=== PATIENT | female | born 1975 | race Caucasian/White ===

== ENCOUNTER 2023-10-04 14:48 | Outpatient (AMB) | payer OTHER, SELFPAY ==
--- NOTE | 2023-10-04 15:18 | A.OFFPC_ITS ---
Vital Signs 10/04/23 15:26 Height 5 ft 3 in Weight 159 lb BMI 28.2 BP 100/60 Blood Pressure Location Rt brachial Position Sitting Respiration 18 Pulse 78 Pulse Source Pulse Oximeter Temp 97.1 F Temp Source Tympanic Pulse Oximetry (%) 98 Oxygen Delivery Method Room Air Intake Visit Reasons: EST CARE Intake Note: establish care Is last menstrual period known: Yes Last menstrual period: 09/25/23 Post menopausal: No Patient : No Medication List - Last Reconciled 10/04/23 by Jose Alfredo Vargas MD No Known Home Meds Tobacco use date assessed: 10/04/23 Dental Screening Dental Screen Date: 10/04/23 Did you have a dental visit in the last 12 months?: No Did you have a dental problem in the last 6 months where you did not have access to dental care?: Yes Was dental information given to patient?: Patient has dentist HPI EST CARE HPI Details New?patient Prior?PCP: No PCP in [place] Last?office?visit/CPE: N/A Acute?issue(s): Concern re Gout Sleep apnea Irregular periods Upper back pain PMHx: upper back pain SurgHx: x 3 FHx: Dad: Dm. Mom: healthy GM: DM. SocHx: Quit cigs in 1999. EtOH: Wine 1-2 occassional. No drugs HPI Comments History of Present Illness Details Documentation assistance for Jose Alfredo Vargas MD, was provided by Jorge Mtz, Certified Anesthesiologist Assistant on 10/04/2023 at 4:17 PM EST. I, Dr. Vargas, have read, observed, and verified documentation. 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 1. Little interest or pleasure in doing things: not at all 2. Feeling down, depressed, or hopeless: several days 3. Trouble falling or staying asleep, or sleeping too much: several days 4. Feeling tired or having little energy: several days 5. Poor appetite or overeating: not at all 6. Feeling bad about yourself - or that you are a failure or have let yourself or your family down: several days 7. Trouble concentrating on things, such as reading the newspaper or watching television: not at all 8. Moving or speaking so slowly that other people could have noticed. Or the opposite - being so fidgety or restless that you have been moving around a lot more than usual: not at all 9. Thoughts that you would be better off or of hurting yourself in some way: not at all Total score: 4 Depression Screening Interpretation: Negative Depression Screening Done: Yes [id number] - PHQ-9 Billing: Yes Source: Developed by Drs. Derek Layton, Rizwana King, Chris Thomason and colleagues, with an educational saida from [employer]. Thrive Questionnaire Date Thrive assessed: 10/04/23 I am a: Patient What is your living situation today?: I have a steady place to live Within the past 12 months, did the food you bought not last and you didn't have the money to get more?: Never true Within the past 12 months, did you worry whether your food would run out before you got money to buy more?: Never true Do you have trouble paying for medicines?: No Do you have trouble getting transportation to medical appointments?: No Do you have trouble paying your heating and electricity bill?: No Do you have trouble taking care of your child, family member or friend?: No Do you have trouble with day-to-day activities such as bathing, preparing meals, shopping, managing finances, etc.?: No Are you currently unemployed and looking for a job?: No Are you interested in more education?: No Please select the resources that you would like help with: None Currently or been in a relationship where the following occur: No concerns reported THRIVE Score: 0 AUDIT C Alcohol Use Questionnaire (AUDIT-C) 1. How often do you have a drink containing alcohol?: 2-3 times a week 2. How many drinks containing alcohol do you have on a typical day when you are drinking?: 1 or 2 3. How often do you have six or more drinks on one occasion?: Never Total Score: 3 Score Reviewed/Action Taken: Yes MEET-7 AMB Questionnaire MEET-7 Date MEET - 7 assessed: 10/04/23 Feeling nervous, anxious, or on edge: 1 = Several days Not being able to stop or control worryin = Not at all Worrying too much about different things: 1 = Several days Trouble relaxin = Several days Being so restless that it is hard to sit still: 0 = Not at all Becoming easily annoyed or irritable: 0 = Not at all Feeling afraid as if something awful might happen: 0 = Not at all Total MEET-7 score (0-4 normal; 5-9 mild; 10-14 moderate; 15-21 severe): 3 Source: Developed by Drs. Derek Layton, Rizwana King, Chris Thomason and colleagues, with an educational saida from [employer]. MEET-7 Assessment Billing MEET-7 Assessment Tool: MEET-7 Assessment 55586 ACT Questionnaire In the past 4 weeks, how much of the time did your asthma keep you from getting as much done at work, school or at home?: None of the time During the past 4 weeks, how often have you had shortness of breath?: Not at all During the past 4 weeks, how often did your asthma symptoms wake you up at night or earlier than usual in the morning?: Not at all During the past 4 weeks, how often have you had to use your rescue inhaler or nebulizer medication?: 1-2 times a week How would you rate your asthma control during the past 4 weeks?: Completely controlled ACT Interpretation: Positive Score: 22 Review of Systems Const Denies chills, Denies fatigue, Denies fever(s), Denies headache(s) and Denies weakness ENT Denies dizziness and Denies headache(s) Card Denies dyspnea Resp Denies cough, Denies dyspnea, Denies wheezing and Denies other (shortness of breath) Musc Reports back pain, Denies numbness and Denies tingling Neuro Denies dizziness, Denies headache(s), Denies numbness, Denies tingling and Denies weakness Psych Denies anxiety and Denies depression Endo Denies fatigue Aller/Immun Denies wheezing Physical exam (Primary Care) Vital Signs: Last Vital Signs Temp 97.1 F 08/19/24 15:26 Pulse 78 10/04/23 15:26 Resp 18 10/04/23 15:26 BP 100/60 10/04/23 15:26 Pulse Ox 98 10/04/23 15:26 Oxygen Delivery Method Room Air 10/04/23 15:26 BMI result Body Mass Index 28.2 Tobacco/Smoking Status: Tobacco use Status Tobacco use date assessed 10/04/23 10/04/23 15:28 Patient Tobacco Use Status Never used Tobacco 10/04/23 15:28 e-Cigarette/Vaping Use Never Used 10/04/23 15:28 PHQ-9: PHQ-9 Score PHQ-9: Total score 4 10/04/23 15:28 Depression Screening Interpretation: Negative Thrive Assessment: Date of Thrive Assessment Date Thrive assessed 10/04/23 10/04/23 15:28 Currently or been in a relationship where the following occur: No concerns reported Const General: well developed; No acute distress Nutritional Appearance: well nourished Orientation/consciousness: patient oriented x3 HENMT Head: Yes normocephalic and Yes atraumatic Eyes General: appearance normal, both eyes and all related structures Pupils: Equal, round and reactive pupils present EOM: EOMs intact bilaterally Resp Effort & Inspection: normal respiratory effort Neuro General: patient oriented x3 and gait normal Cranial nerves: Yes Equal, round and reactive pupils present Psych Affect: normal affect Assessment and Plan Assessment & Plan (1) Gout: Code(s): M10.9 - Gout, unspecified Plan: History?of?gout Check?uric?acid?level (2) Ganglion cyst: Code(s): M67.40 - Ganglion, unspecified site Plan: Ganglion?cyst?at?anterior?right?wrist Reassured?patient She?will?let?me?know?if?this?is?getting?irritated?or?larger (3) Sleep apnea: Code(s): G47.30 - Sleep apnea, unspecified Plan: Witnessed?apneic?events Referred?to?Sleep?Medicine (4) Irregular periods: Code(s): N92.6 - Irregular menstruation, unspecified Plan: Likely?perimenopause Check?labs Patient?is?being?referred?to?asbestos surveyor?for?screening?for?cervical?cancer?and? can?also?discuss?irregular?menstruation (5) Upper back pain: Code(s): M54.9 - Dorsalgia, unspecified Plan: Has?benefited?from?physical?therapy?in?the?past?and?I?referred?her?back?to?physi milka?therapy Longstanding?symptoms?however-Check?x-ray Can?use?OTC?ibuprofen,?ice?and?heat (6) Screening for cervical cancer: Code(s): Z12.4 - Encounter for screening for malignant neoplasm of cervix Plan: Referred?to?OBGYN (7) Laboratory exam ordered as part of routine general medical examination: Code(s): Z00.00 - Encounter for general adult medical examination without abnormal findings Plan: Check?labs Orders: Orders Comprehensive [place]. Panel Fast Today Z00.00 - Encounter for general adult medical examination without abnormal findings Lipid Panel Today Z00.00 - Encounter for general adult medical examination without abnormal findings TSH reflex Free T4 Today Z00.00 - Encounter for general adult medical examin ation without abnormal findings UA and rflx microscopic Today Z00.00 - Encounter for general adult medical examination without abnormal findings Uric Acid Today M10.9 - Gout, unspecified Follicle Stimulating Hormone Today N92.6 - Irregular menstruation, unspecified Lutenizing Hormone Today N92.6 - Irregular menstruation, unspecified Microalbumin, Random (w Creat) Today I10 - Essential (primary) hypertension PT Evaluation and Treatment Today M54.9 - Dorsalgia, unspecified XR thoracic spine 2V Today M54.9 - Dorsalgia, unspecified Referrals PLACER MINER Referral N92.6 - Irregular menstruation, unspecified, Z12.4 - Encounter for screening for malignant neoplasm of cervix Sleep Medicine Referral G47.30 - Sleep apnea, unspecified Coding Level of Care Code New Pt Level 4 (16926) Diagnoses Gout M10.9 Ganglion cyst M67.40 Sleep apnea G47.30 Irregular periods N92.6 Upper back pain M54.9 Screening for cervical cancer Z12.4 Laboratory exam ordered as part of routine general medical examination Z00.00 Additional Codes MEET-7 Assessment Billing - MEET-7 Assessment Tool: MEET-7 Assessment [id number] ([id number])
[2023-10-04 15:26] VITALS: BP 100/60; PULSE 78; RESP 18; TEMP 36.2; O2SAT 98; BMI 28.2
== END 2023-10-04 16:17 | disposition home or self-care (01) ==
PROVIDERS: Visit Provider Family Medicine
DX: M10.9 Gout, unspecified (principal); M67.40 Ganglion, unspecified site; G47.30 Sleep apnea, unspecified; N92.6 Irregular menstruation, unspecified; M54.9 Dorsalgia, unspecified
CPT/HCPCS: 99204

== ENCOUNTER 2023-10-06 07:45 | Outpatient (REF) | payer OTHER, SELFPAY ==
[2023-10-06 10:00] LABS: Appearance Urine Clear; Color Urine Yellow; Glucose Urine UA Negative (Negative); Leukocyte Esterase Urine Negative (Negative); Nitrite Urine Negative (Negative); PH 5.5 (5.0-9.0); Specific Gravity - Urine <= 1.005 (1.005-1.025); Urine Blood Negative (Negative); Urine Ketones Negative (Negative); Urine Protein Negative (Neg-Trace)
[2023-10-06 10:41] LABS: Alanine Aminotransferase 14 U/L (0-31); Albumin Level 4.3 g/dL (3.5-5.0); Alkaline Phosphatase 63 U/L (39-117); Anion Gap 12 (12-20); Aspartate Amino Transferase 17 U/L (5-31); Bilirubin Total 0.6 mg/dL (0.0-1.0); Blood Urea Nitrogen 13 mg/dL (9-16); Calcium 9.2 mg/dL (8.4-10.2); Carbon Dioxide 24 mmol/L (22-29); Chloride 105 mmol/L (96-108); Cholesterol 185 mg/dL (<200); Estimated Glomerular Filt Rate > 60; Glucose Fasting 105 mg/dL (60-99); HDL Cholesterol 54 mg/dL (>40); LDL Cholesterol Calculated 117 mg/dL (<100); Potassium 3.9 mmol/L (3.3-5.1); Sodium 137 mmol/L (135-145); Total Protein 7.2 g/dL (6.5-8.0); Triglycerides 74 mg/dL (<150); Uric Acid 5.9 mg/dL (2.4-5.7)
[2023-10-06 10:55] LABS: TSH reflex Free T4 1.23 uIU/mL (0.32-4.0)
[2023-10-06 11:53] LABS: Creatinine Urine 39.97 mg/dL; Microalbumin Urine < 5.0 mg/L
[2023-10-07 07:28] LABS: Follicle Stimulating Hormone 48.6 mIU/mL; Lutenizing Hormone 23.1 mIU/mL
== END 2023-10-06 07:46 | disposition home or self-care (01) ==
LOC: HO.WFDLDS 07:45
PROVIDERS: Visit Provider Family Medicine
DX: Z00.00 Encounter for general adult medical examination without abnormal findings (principal); I10 Essential (primary) hypertension; M10.9 Gout, unspecified; N92.6 Irregular menstruation, unspecified
CPT/HCPCS: 36415; 80053; 80061; 81003; 82043; 82570; 83001; 83002; 84443; 84550

== ENCOUNTER 2023-12-07 15:02 | Outpatient (REF) | payer OTHER, SELFPAY ==
[2023-12-08 13:41] LABS: CT PCR NOT DETECTED (Not Detect.); NG PCR NOT DETECTED (Not Detect.)
[2023-12-08 13:55] LABS: Bacterial Vaginosis PCR POSITIVE (Negative); Candida Group PCR NOT DETECTED (Not Detect); Candida glab krusei PCR NOT DETECTED (Not Detect); Trichomonas vaginalis PCR NOT DETECTED (Not Detect)
[2023-12-09 17:53] LABS: HPV mRNA E6/E7 Not Detected (Not Detected)
== END 2023-12-07 15:03 | disposition home or self-care (01) ==
LOC: HO.LAB 15:02
PROVIDERS: PCP Family Medicine; Visit Provider Advanced Practice Midwife
DX: Z01.419 Encounter for gynecological examination (general) (routine) without abnormal findings (principal); N89.8 Other specified noninflammatory disorders of vagina; Z11.51 Encounter for screening for human papillomavirus (HPV); Z11.8 Encounter for screening for other infectious and parasitic diseases; Z11.3 Encounter for screening for infections with a predominantly sexual mode of transmission
CPT/HCPCS: 0352U; 36415; 87491; 87591; 87624; 88175

== ENCOUNTER 2023-12-07 15:02 | Outpatient (AMB) | payer OTHER, SELFPAY ==
[2023-12-07 15:09] VITALS: BP 105/60; BMI 28.5
--- NOTE | 2023-12-07 15:09 | MHC.OFFVIS ---
Vital Signs 12/07/23 15:09 Height 5 ft 3 in Weight 161 lb BMI 28.5 BP 105/60 Intake Visit Reasons: New PT/ Annual 21 Dealer Services: 21 Dealer Present Information Interpreted: clinical only Gasoline Engine Inspector: Gasoline Engine Inspector Present Allergies No Known Allergies Allergy (Verified 12/07/23 15:18) Medication List - Last Reconciled 12/07/23 by Kimber Adams CNM No Known Home Meds Is last menstrual period known: Yes Last menstrual period: 11/09/23 HPI HPI New PT/ Annual: Details: Patient is here is a new patient for new study director exam she immigrated [facility] 3 years ago she has a primary care provider on a [place] she has not appointment up nurse practitioners as well she has some upper that pain that gets worse when she is stressed she tries eat well and works out she has also been wondering about different kinds of dermatitis on her skin various areas that have recurred over the years. She says uses every kind of moisturizer that there is currently she is using Cetaphil or Eucerin.. She is sexually active with her partner of many years and has no concerns about STIs but decided to get tested while she is here she does not remember having any abnormal Pap smear she had a history of ovarian cyst but when they went in and did a laparoscopy went to remove the cyst it popped and there was nothing that needed to be done at all they did notice at the time that she had varicose veins in side and they told her about that told her it was not anything that was worrisome or that was problematic. 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 Cognitive needs: No Hearing needs: No Vision needs: Yes Female Reproductive History Menstrual Age of Menarche: 11 Date of last menstrual period: 11/09/23 control method: permanent sterilization Total pregnancies: 3 Full term: 3 Date of last pap smear: 03/16/20 (negative) Physical Exam Vital Signs: Last Vital Signs BP 105/60 12/07/23 15:09 BMI result Body Mass Index 28.5 Const General: healthy appearing, comfortable, no acute distress, well developed and alert Nutritional Appearance: average body habitus Orientation/consciousness: patient oriented x3 Limitations: no limitations HEENT Head: Yes normocephalic Neck Neck: Yes normal visual inspection Chest Chest palpation & inspection: normal inspection of the chest Breast/axilla inspection: normal inspection of the breasts and normal inspection of the axillae Breast/axilla palpation: normal palpation of the breasts and normal palpation of the axillae Resp Effort & Inspection: normal respiratory effort GI Inspection: Yes normal to inspection, No Abdominal wall edema and No distended Palpation (GI): Soft to palpation and nontender Other: Cervix multiparous pink moist smooth normal discharge uterus midposition to anteverted mobile nontender adnexa nontender nonenlarged good tone with Kegel. General: Yes bladder normal to palpation External Female Exam: normal external appearance and normal appearance of the urethra Speculum Exam - Vagina: normal appearance of the vagina, normal palpation and normal vaginal discharge Speculum Exam - Cervix: normal appearance of the cervix, normal palpation and nontender Bimanual exam- vagina & uterus: normal bimanual exam, normal palpation, uterine size normal, bladder normal to palpation, consistency normal, normal palpation, uterine mobility normal, uterine shape normal, No Cervical tenderness present, non-tender and no cervical motion tenderness Bimanual Exam- Adnexa, other: normal adnexae, no masses, normal and No adnexal tenderness Neuro General: patient oriented x3 Assessment & Plan Assessment & Plan (1) Screening for cervical cancer: Code(s): Z12.4 - Encounter for screening for malignant neoplasm of cervix Category: Medical (2) History of tubal ligation: Code(s): Z98.51 - Tubal ligation status Category: Surgical (3) H/O laparoscopy: Code(s): Z98.890 - Other specified postprocedural states Category: Surgical (4) Encounter for screening examination for sexually transmitted disease: Code(s): Z11.3 - Encounter for screening for infections with a predominantly sexual mode of transmission Category: Medical (5) Breast cancer screening: Code(s): Z12.39 - Encounter for other screening for malignant neoplasm of breast Category: Medical (6) Well woman exam with routine gynecological exam: Code(s): Z01.419 - Encounter for gynecological examination (general) (routine) without abnormal findings Category: Medical Plan -----Discussed in this visit the following: healthy balanced diet, regular and consistent exercise, getting recommended health screens, doing the best she can for her particular health concerns, kegel exercises, pap smear screening and followup recommendations, mammography screening and SBE, normal changes in cycles in her life stage--- . Discussed changes in a health of body's as and what can be related menopause what aging discussed also the possibility that some of might be related to as has come on living space B's more than areas recently as where she lives most of her life was a very different humidity level suggested and highly recommended increasing her water intake even more, and diligently using moisture lotion immediately after showering for her skin has a chance to dry out and exploring use of humidifiers. In addition to that though if she feels that there any joint issues or skin issues that are not alleviated with these concerns to explore this with her primary care provider as there some times are conditions that can manifest in these systems though they would not necessarily be have anything to do with menopause. Discussed that vaginal dryness and decreased comfort sex can be related to menopause as well as other symptoms. I am ordering blood tests for STIs she decided to get done today and she is on portal in check the results herself. I am also ordering mammogram she has been afraid of getting 1 done because she heard it hurts, so I recommend she very much try to schedule it for after her period, Before her breast become more tender. Orders: Orders Hepatitis B Surface Antigen Today Z11.3 - Encounter for screening for infections with a predominantly sexual mode of transmission, Z12.39 - Encounter for other screening for malignant neoplasm of breast, Z12.4 - Encounter for screening for malignant neoplasm of cervix, Z98.51 - Tubal ligation status, Z98.890 - Other specified postprocedural states Hepatitis C Antibody Today Z11.3 - Encounter for screening for infections with a predominantly sexual mode of transmission, Z12.39 - Encounter for other screening for malignant neoplasm of breast, Z12.4 - Encounter for screening for malignant neoplasm of cervix, Z98.51 - Tubal ligation status, Z98.890 - Other specified postprocedural states CT NG by PCR Today N89.8 - Other specified noninflammatory disorders of vagina HIV Ab/Ag Today Z11.3 - Encounter for screening for infections with a predominantly sexual mode of transmission, Z12.39 - Encounter for other screening for malignant neoplasm of breast, Z12.4 - Encounter for screening for malignant neoplasm of cervix, Z98.51 - Tubal ligation status, Z98.890 - Other specified postprocedural states Syphilis Screen Today Z11.3 - Encounter for screening for infections with a predominantly sexual mode of transmission, Z12.39 - Encounter for other screening for malignant neoplasm of breast, Z12.4 - Encounter for screening for malignant neoplasm of cervix, Z98.51 - Tubal ligation status, Z98.890 - Other specified postprocedural states MM tomosynthesis screening BI Today Z01.419 - Encounter for gynecological examination (general) (routine) without abnormal findings, Z12.31 - Encounter for screening mammogram for malignant neoplasm of breast, Z12.39 - Encounter for other screening for malignant neoplasm of breast Bacterial Vaginosis Panel Today N89.8 - Other specified noninflammatory disorders of vagina PAP + HPV E6/E7 rfx 18/45 Today Z01.419 - Encounter for gynecological examination (general) (routine) without abnormal findings Coding Level of Care Code New Pt Prev Care 40-64y([id number]) Diagnoses Screening for cervical cancer Z12.4 History of tubal ligation Z98.51 H/O laparoscopy Z98.890 Encounter for screening examination for sexually transmitted disease Z11.3 Breast cancer screening Z12.39 Well woman exam with routine gynecological exam Z01.419
== END 2023-12-07 16:34 | disposition home or self-care (01) ==
LOC: HO.HWSM 15:02
PROVIDERS: PCP Family Medicine; Visit Provider Advanced Practice Midwife
DX: Z01.419 Encounter for gynecological examination (general) (routine) without abnormal findings (principal); Z98.51 Tubal ligation status
CPT/HCPCS: 99386

== ENCOUNTER 2023-12-18 09:05 | Outpatient (REF) | payer OTHER, SELFPAY ==
--- NOTE | ~2023-12-18 | MM_ITS ---
EXAMINATION: MM SCREENING DIGITAL BREAST TOMOSYNTHESIS, BILATERAL CLINICAL INFORMATION: Screening. Asymptomatic. COMPARISON: Mammography: Baseline. TECHNIQUE: Digital breast mammography with tomosynthesis is performed in both the craniocaudal and mediolateral oblique views along with computer-aided detection (CAD). FINDINGS: The breasts are heterogeneously dense, which may obscure small masses (ACR BI-RADS breast composition Category c). There are no significant masses, abnormal calcifications, or other abnormalities. MM/MM tomosynthesis screening BI IMPRESSION: No mammographic evidence of malignancy. ASSESSMENT: BI-RADS BI-RADS 1 - Negative RECOMMENDATION: Routine annual mammography screening. 1 year F/U This examination should not preclude the clinical evaluation of a suspicious palpable abnormality. This patient's information was entered into a reminder system with a target due date for their next mammogram. Electronically signed by: Sri Hicks DO 12/28/2023 09:23 AM MARSHA
[2023-12-18 10:53] LABS: Syphilis Screen Nonreactive (Nonreactive)
[2023-12-18 10:54] LABS: HBsAGNum1 0.31 S/CO (0.00-0.99); HIV AB/AG Nonreactive (Nonreactive); HIV Num 1 0.06 S/CO (0.00-0.99); Hepatitis B Surface Antigen Negative (Negative); ~HepC Num1 0.05 S/CO (0.00-0.79); ~Hepatitis C Antibody Nonreactive (Nonreactive)
== END 2023-12-18 09:06 | disposition home or self-care (01) ==
LOC: HO.MAMMO 09:05
PROVIDERS: PCP Family Medicine; Visit Provider Advanced Practice Midwife
DX: Z12.31 Encounter for screening mammogram for malignant neoplasm of breast (principal); Z12.39 Encounter for other screening for malignant neoplasm of breast; Z01.419 Encounter for gynecological examination (general) (routine) without abnormal findings; Z11.3 Encounter for screening for infections with a predominantly sexual mode of transmission; Z12.4 Encounter for screening for malignant neoplasm of cervix; Z98.890 Other specified postprocedural states; Z98.51 Tubal ligation status
CPT/HCPCS: 36415; 77063; 77067; 86780; 86803; 87340; 87389

== ENCOUNTER → 2023-12-18 09:15 | Outpatient (BNV) | payer OTHER, SELFPAY | PROVIDERS: PCP Family Medicine; Visit Provider Internal Medicine | DX: Z12.31 Encounter for screening mammogram for malignant neoplasm of breast (principal) | CPT/HCPCS: 77063; 77067 ==

== ENCOUNTER 2024-01-17 15:15 | Outpatient (AMB) | payer OTHER, SELFPAY ==
--- NOTE | 2024-01-17 15:17 | A.OFFPC_ITS ---
Vital Signs 01/17/24 15:22 Height 5 ft 3 in Weight 163 lb BMI 28.9 BP 118/68 Blood Pressure Location Rt brachial Position Sitting Respiration 13 Pulse 86 Pulse Source Pulse Oximeter Pulse Oximetry (%) 98 Oxygen Delivery Method Room Air Intake Visit Reasons: CPE with f/u labs and health maint. 30 mins Intake Note: physical and follow up on labs Call Center Receptionist Required: No Allergies No Known Allergies Allergy (Verified 01/17/24 15:31) Medication List - Last Reconciled 01/17/24 by [facility] No Known Home Meds Tobacco use date assessed: 10/04/23 Dental Screening Dental Screen Date: 10/04/23 HPI HPI Comments History of Present Illness Details 48 y/o F with gout, DEIDRA on CPAP, perime nopause, chronic low back pain, IFG, rosacea SurgHx: x 3, tubal ligation, laparoscopy FHx: Dad: Dm. Mom: healthy GM: DM. SocHx: moved from [facility], Quit cigs in 1999. EtOH: Wine 1-2 occasional. No drugs [facility] [employer] Health Maintenance: ? Colon declined, willing to do cologaurd, ordered today ? Mammo 12/2023 ? DEXA n/a ? PAP 11/2023 ? Tdap declined Flu declined Here today for CPE Reviewed w/ her: Labs 09/2023 fasting glucose 105, Uric acid ^ 5.9, LDL 117 otherwise normal Trying to eat healthy Pain in hands and joints in general cont to suffer perimenopause sx Has dry eyes, using OTC drops with + effect. Eye exam in the last 1 year Rash to body and rash to face; itchy thumbs bilat cortisone helps; saw derm a long time ago. Plan: Derm referral cologuard Menoapuse supplement, buy online Selsun blue shampoo and moisturizer for rash If cont to have aches/pains, please let us know. Can consider addl labs and/or referral to [facility]. RTO 1 year, CPE, sooner PRN [facility] Surgical History (Updated 12/07/23 @ 16:26 by Kimber Adams CNM) H/O laparoscopy S/P History of tubal ligation Social History (Reviewed 12/07/23 @ 15:[address] 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 1. Little interest or pleasure in doing things: not at all 2. Feeling down, depressed, or hopeless: not at all 3. Trouble falling or staying asleep, or sleeping too much: not at all 4. Feeling tired or having little energy: not at all 5. Poor appetite or overeating: not at all 6. Feeling bad about yourself - or that you are a failure or have let yourself or your family down: not at all 7. Trouble concentrating on things, such as reading the newspaper or watching television: not at all 8. Moving or speaking so slowly that other people could have noticed. Or the opposite - being so fidgety or restless that you have been moving around a lot more than usual: not at all 9. Thoughts that you would be better off or of hurting yourself in some way: not at all Total score: 0 Depression Screening Interpretation: Negative Depression Screening Done: Yes 27398 - PHQ-9 Billing: Yes Source: Developed by Drs. Derek Layton, Rizwana King, Chris Thomason and colleagues, with an educational saida from [employer]. Thrive Questionnaire Date Thrive assessed: 01/17/24 I am a: Patient What is your living situation today?: I have a steady place to live Within the past 12 months, did the food you bought not last and you didn't have the money to get more?: I choose not to answer this question Within the past 12 months, did you worry whether your food would run out before you got money to buy more?: Never true Do you have trouble paying for medicines?: No Do you have trouble getting transportation to medical appointments?: No Do you have trouble paying your heating and electricity bill?: No Do you have trouble taking care of your child, family member or friend?: No Do you have trouble with day-to-day activities such as bathing, preparing meals, shopping, managing finances, etc.?: No Are you currently unemployed and looking for a job?: No Are you interested in more education?: No Please select the resources that you would like help with: None Currently or been in a relationship where the following occur: I choose not to answer THRIVE Score: 0 AUDIT C Alcohol Use Questionnaire (AUDIT-C) 1. How often do you have a drink containing alcohol?: 2-4 times a month 2. How many drinks containing alcohol do you have on a typical day when you are drinking?: 1 or 2 3. How often do you have six or more drinks on one occasion?: Never Total Score: 2 Score Reviewed/Action Taken: Yes MEET-7 AMB Questionnaire MEET-7 Date MEET - 7 assessed: 01/17/24 Feeling nervous, anxious, or on edge: 1 = Several days Not being able to stop or control worryin = Several days Worrying too much about different things: 1 = Several days Trouble relaxin = Not at all Being so restless that it is hard to sit still: 1 = Several days Becoming easily annoyed or irritable: 0 = Not at all Feeling afraid as if something awful might happen: 0 = Not at all Total MEET-7 score (0-4 normal; 5-9 mild; 10-14 moderate; 15-21 severe): 4 Source: Developed by Drs. Derek Layton, Rizwana King, Chris Thomason and colleagues, with an educational saida from [employer]. MEET-7 Assessment Billing MEET-7 Assessment Tool: MEET-7 Assessment 01766 Physical exam (Primary Care) Tobacco/Smoking Status: Tobacco use Status Tobacco use date assessed 10/04/23 01/17/24 15:19 Patient Tobacco Use Status Never used Tobacco 01/17/24 15:19 e-Cigarette/Vaping Use Never Used 01/17/24 15:19 PHQ-9: PHQ-9 Score PHQ-9: Total score 0 01/17/24 15:19 Depression Screening Interpretation: Negative Thrive Assessment: Date of Thrive Assessment Date Thrive assessed 01/10/24 01/17/24 15:19 Currently or been in a relationship where the following occur: I choose not to answer Const Other: General: Well developed, well nourished, in no acute distress. Appears stated age. Head: Normocephalic, atraumatic. Eyes: Pupils are equal, round and reactive to light and accommodation. Conjunctivae are clear. Vision grossly normal. Ears: TMs clear AU, EACS WNL Nose: Patent, without discharge. Mouth: There are no ulcers or lesions noted. No inflammation, no post nasal drip, no plaques nor exudates. Neck: Supple, no adenopathy or thyromegaly. Lungs: Clear to auscultation bilaterally. No rales, rhonchi or wheeze noted. Good air flow in all ross. Heart: Regular rate and rhythm. No murmurs, click, rubs or gallops are noted. Abdomen: Bowel sounds present in all quadrants. The abdomen is soft, nontender, with no masses or organomegaly noted. No hernias are noted. Musculoskeletal: Joints are nontender, without swelling, redness, or effusions. Range of motion is observed to be normal. Pulses: Peripheral pulses are equal and palpable bilaterally. Extremities: No clubbing, cyanosis nor edema is noted. Neurologic: Gait and station normal. Cranial Nerves 2-12 intact. Motor strength grossly symmetrical and intact. No sensory loss. Balance normal. Skin: No ulcers, or lesions noted. Turgor is good. Skin color is good. Hair and nails are without abnormalities. Rosacea to face, keratosis pilaris to bilat upper and lower extremities, nape of neck, left thumb is a pinpoint red area on the palmar surface Psych: Normal eye contact, affect and mood appropriate, and normal interactions. Patient is alert and appropriate to context. Results AMB Hemoglobin A1c AMB Hemoglobin A1c 5.5 % Last Edit by Yovana Jamison MA on 01/17/24 15:47 Coding Level of Care Code Est Pt Prev Care 40-64y(87635) Diagnoses Encounter for general adult medical examination without abnormal findings Z00.00 Perimenopause N95.1 DEIDRA on CPAP G47.33 Rash of face R21 Keratosis pilaris L85.8 Pain in other joint M25.59 Joint pain location: other joint Additional Codes MEET-7 Assessment Billing - MEET-7 Assessment Tool: MEET-7 Assessment 84537 ([id number]) PHQ-9 - 35102 - PHQ-9 Billing: Yes ([id number]) Assessment & Plan Assessment & Plan (1) Encounter for general adult medical examination without abnormal findings: Code(s): Z00.00 - Encounter for general adult medical examination without abnormal findings (2) Perimenopause: Code(s): N95.1 - Menopausal and female climacteric states Category: Medical (3) DEIDRA on CPAP: Code(s): G47.33 - Obstructive sleep apnea (adult) (pediatric) Category: Medical (4) Rash of face: Code(s): R21 - Rash and other nonspecific skin eruption Category: Medical (5) Keratosis pilaris: Code(s): L85.8 - Other specified epidermal thickening Category: Medical (6) Arthralgia: Code(s): M25.50 - Pain in unspecified joint Category: Medical Qualifiers: Joint pain location: other joint Qualified Code(s): M25.59 - Pain in other specified joint Plan . Orders: Orders AMB Hemoglobin A1c Today Z13.9 - Encounter for screening, unspecified Referrals Cologuard Test Z12.11 - Encounter for screening for malignant neoplasm of colon, Z12.12 - Encounter for screening for malignant neoplasm of rectum Dermatology Referral R21 - Rash and other nonspecific skin eruption Patient Instructions: Menopause by [employer] try to buy it online [email or web address]?[email or web address] Use Selsun blue shampoo with salicylic acid and then apply a greasy moisurizer like A&D or bag balm. Health screenings for women You should visit your health care provider from time to time, even if you are healthy. The purpose of these visits is to: Screen for medical issues Assess your risk for future medical problems Encourage a healthy lifestyle Update vaccinations and other preventive care services Help you get to know your provider in case of an illness Information Even if you feel fine, you should still see your provider for regular checkups. These visits can help you avoid problems in the future. For example, the only way to find out if you have high blood pressure is to have it checked regularly. High blood sugar and high cholesterol levels also may not have any symptoms in the early stages. A simple blood test can check for these conditions. There are specific times when you should see your provider or receive specific health screenings. The [place] Preventive Services Task Force publishes a list of recommended screenings. Below are screening guidelines for women ages 18 to 39. BLOOD PRESSURE SCREENING Your blood pressure should be checked at least once every 3 to 5 years if: Your blood pressure is in the normal range (top number less than 120 mm Hg and bottom number less than 80 mm Hg) You don't have risk factors for high blood pressure Ask your provider if you need your blood pressure checked more often if: The top number is 120 to 129 mm Hg or the bottom number is 70 to 79 mm Hg You have diabetes, heart disease, kidney problems, are overweight, or have certain other health conditions You have a first-degree relative with high blood pressure You are Black You had high blood pressure during a If the top number is 130 mm Hg or greater or the bottom number is 80 mm Hg or greater, this is considered stage 1 hypertension. Schedule an appointment with your provider to learn how you can reduce your blood pressure. Watch for blood pressure screenings in your area. Ask your provider if you can stop in to have your blood pressure checked. BREAST CANCER SCREENING Experts do not agree about the benefits of breast self-exams in finding breast cancer or saving lives. Talk to your provider about what is best for you. A screening mammogram is not recommended for most women under age 40. Your provider may discuss and recommend mammograms, MRI scans, or ultrasounds if you have an increased risk for breast cancer, such as: A mother or sister who had breast cancer at a young age (most often starting screening earlier than the age the close relative was diagnosed) You carry a high-risk genetic marker CERVICAL CANCER SCREENING Cervical cancer screening should start at age 21 years unless your provider advises otherwise. After the first test: Women ages 21 through 29 should have a Pap test every 3 years. Exoprts do not agree on whether HPV testing is recommended for this age group. Women ages 30 through 65 should be screened with either a Pap test every 3 years or the HPV test every 5 years or both tests every 5 years (called cotesting ). Women who have been treated for precancer (cervical dysplasia) should continue to have Pap tests for 20 years after treatment or until age 65, whichever is longer. If you have had your uterus and cervix removed (total hysterectomy), and you have not been diagnosed with cervical cancer or precancer (high grade cervical neoplasia), you do not need cervical cancer screening. CHOLESTEROL SCREENING Cholesterol screening should begin at: Age 45 for women with no known risk factors for coronary heart disease Age 20 for women with known risk factors for coronary heart disease Repeat cholesterol screening should take place: Every 5 years for women with normal cholesterol levels More often if changes occur in lifestyle (including weight gain and diet) More often if you have diabetes, heart disease, kidney problems, or certain other conditions DIABETES SCREENING You should be screened for diabetes starting at age 35 and then repeated every 3 years if you have no risk factors for diabetes. Screening may need to start earlier and be repeated more often if you have other risk factors for diabetes, such as: You have a first degree relative with diabetes. You are overweight or have obesity. You have high blood pressure, prediabetes, or a history of heart disease. Screening for diabetes should be done if you are planning to become and you are overweight and have other risk factors such as high blood pressure. DENTAL EXAM Go to the dentist once or twice every year for an exam and cleaning. Your dentist will evaluate if you need more frequent visits. EYE EXAM Have an eye exam every 5 to 10 years before age 40. If you have vision problems, have an eye exam every 2 years or more often if recommended by your provider. You should have an eye exam that includes an examination of your retina (back of your eye) at least every year if you have diabetes. IMMUNIZATIONS Commonly needed vaccines include: Flu shot: get one every year. COVID-19 vaccine: ask your provider what is best for you. Tetanus-diphtheria and acellular pertussis (Tdap) vaccine: have one at or after age 19 as one of your tetanus-diphtheria vaccines if you did not receive it as an adolescent. Tetanus-diphtheria: have a booster (or Tdap) every 10 years. Varicella vaccine: receive 2 doses if you never had chickenpox or the varicella vaccine. Hepatitis B vaccine: receive 2, 3, or 4 doses, depending on your exact circumstances. Measles, mumps, and rubella (MMR) vaccine: receive 1 to 2 doses if you are not already immune to MMR. Your provider can tell you if you are immune. Ask your provider about the human papillomavirus (HPV) vaccine if: You have not received the HPV vaccine in the past You have not completed the full vaccine series (you should catch up on this shot) Ask your provider if you should receive other immunizations if you have certain health problems that increase your risk for some diseases such as pneumonia. INFECTIOUS DISEASE SCREENING Women who are sexually active should be screened for chlamydia and gonorrhea up until age 25. Women 25 years and older should be screened for chlamydia and gonorrhea if at high risk. Screening for hepatitis C: All adults ages 18 to 79 should get a one-time test for hepatitis C. people should be screened at every . Screening for human immunodeficiency virus (HIV): All people ages 15 to 65 should get a one-time test for HIV. Depending on your lifestyle and medical history, you may also need to be screened for infections such as syphilis and HIV, as well as other infections. PHYSICAL EXAM All adults should visit their provider from time to time, even if they are healthy. The purpose of these visits is to: Screen for disease Assess your risk of future medical problems Encourage a healthy lifestyle Update your vaccinations and other preventive care services Maintain a relationship with a provider in case of an illness Your height, weight, and BMI should be checked at every exam. During your exam, your provider may ask you about: Depression and anxiety Diet and exercise Alcohol and tobacco use Safety issues, such as using seat belts, smoke detectors, and intimate partner violence Your medicines and risk for interactions SKIN SELF-EXAM Your provider may check your skin for signs of skin cancer, especially if you're at high risk, such as if you: Have had skin cancer before Have close relatives with skin cancer Have a weakened immune system OTHER SCREENING Talk with your provider about colon cancer screening if you have a strong family history of colon cancer or polyps, or if you have had inflammatory bowel disease or polyps yourself. Routine bone density screening of women under 40 is not recommended.
[2024-01-17 15:22] VITALS: BP 118/68; PULSE 86; RESP 13; O2SAT 98; BMI 28.9
== END 2024-01-17 16:03 | disposition home or self-care (01) ==
PROVIDERS: PCP Family Medicine; Visit Provider Nurse Practitioner Family
DX: Z00.00 Encounter for general adult medical examination without abnormal findings (principal); N95.1 Menopausal and female climacteric states; G47.33 Obstructive sleep apnea (adult) (pediatric); R21 Rash and other nonspecific skin eruption; L85.8 Other specified epidermal thickening; M25.59 Pain in other specified joint; Z13.9 Encounter for screening, unspecified

== ENCOUNTER → 2024-01-17 15:15 | Outpatient (BNVA) | payer OTHER, SELFPAY | PROVIDERS: PCP Family Medicine; Visit Provider Nurse Practitioner Family | DX: Z00.00 Encounter for general adult medical examination without abnormal findings (principal); N95.1 Menopausal and female climacteric states; G47.33 Obstructive sleep apnea (adult) (pediatric); R21 Rash and other nonspecific skin eruption; L85.8 Other specified epidermal thickening; M25.59 Pain in other specified joint; R73.01 Impaired fasting glucose | CPT/HCPCS: 83036; 96127 ==

== ENCOUNTER 2024-02-03 07:03 | Outpatient (RCR) | payer OTHER, SELFPAY ==
--- NOTE | 2024-01-28 11:12 | MHC.PT.EP ---
[facility] [place] Office [address] Trever Mckeon [address] [phone] F: [phone] F: [phone] F: [phone] F: [phone] Physical Therapy Plan of Care Date of Evaluation: 01/27/24 Date of Surgery: Diagnosis: PT eval and treat, M54.9 Dorsalgia, unspecified, upper back pain order from Dr. Vargas date of order 10/05/23 Assessment: Pt is a RHD 48 y/o female, referred to PT for treatment of upper back pain. Pt exhibits signs and sx consistent with cervical radiculopathy L>R which is intermittent in appearance impacting dermatone C5/C6 region in combo with postural syndrome. Pt exhibits tightness of the sub-occipital musculature, upper trap, levator scap, and pectoralis. She exhibits weakness of middle/lower trap, poor posture, and intermittent of radiating L UE/R UE. Pt would benefit from attending skilled PT services at a frequency of 1-2x/week x 4 weeks to address impairments, implement HEP, and restore functional mobility. Pt expressing she has a commute to [place] to work and has a $20 dollar copayment impacting her decision to attend therapy once a week. Post initial evaluation she was initiated in gentle pectoralis stretch, upper trap/levator scap stretches L>R side, iso scap squeezes, standing pec stretch, self care, and posture awareness/support. Pt exhibits excellent rehab potential. Frequency and Duration: The patient will be seen 1-2x/week x 4-6 weeks Short Term Goals: 1. Initiate self care for postural/neck program. 2. Pt will demonstrate reduction in neck pain by 05/25. 3. Pt will demonstrate cervical rotation to 80 degrees. 4. Pt will demonstrate centralization of parathesias in the L>R UE to height of the C/S. Mosaic Layer Goals: 1. Pt will demonstrate a negative Nohemy test. 2. Pt will demonstrate reduction in overall headache sx. 3. Pt will demonstrate strength lower trap raises 5/5 B. 4. Pt will demonstrate strength middle trap raises. Treatment Plan: Modalities to reduce pain, spasms and effusion. Manual therapy to restore motion and function. Therapeutic exercise to improve strength and flexibility. Neuromuscular re-education for posture and balance. Therapeutic activities to return to functional activities of daily living. Electronically signed by: Lina Hewitt PT, DPT Please sign and return to therapist. Thank you for your referral.
== END 2024-03-14 09:11 | disposition home or self-care (01) ==
LOC: HO.PTWFD 07:03
PROVIDERS: PCP Family Medicine; Visit Provider Family Medicine
DX: M54.6 Pain in thoracic spine (principal)
CPT/HCPCS: 97110; 97140; 97161; 97535

== ENCOUNTER 2024-02-29 09:14 | Outpatient (AMB) | payer OTHER, SELFPAY ==
--- NOTE | 2024-02-29 09:12 | MHC.PC.OV ---
Intake Visit Reasons: review labs for h/o Gout . Intake Note: lab review Allergies No Known Allergies Allergy (Verified 02/29/24 09:12) Tobacco use date assessed: 10/04/23 Dental Screening Dental Screen Date: 10/04/23 HPI review labs for h/o Gout . HPI Details 48 y/o female presents to f/u labs via telemedicine. Labs drawn 02/25/24. Reviewed labs with pt. Uric acid mildly elevated at 6.6 mg/dL. Lipid panel drawn 10/06/23. Triglycerides 74. TC 185. LDL 117. HDL 54. Has complaints of polyarthralgia and has also noted an episode of a gout flare-up. 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 Derek Layton, Rizwana King, Chris Thomason and colleagues, with an educational saida from [employer]. Review of Systems Const Denies chills, Denies fatigue, Denies fever(s), Denies headache(s) and Denies weakness ENT Denies dizziness and Denies headache(s) Card Denies dyspnea Resp Denies cough, Denies dyspnea, Denies wheezing and Denies other (shortness of breath) Musc Denies numbness and Denies tingling Neuro Denies dizziness, Denies headache(s), Denies numbness, Denies tingling and Denies weakness Psych Denies anxiety and Denies depression Endo Denies fatigue Aller/Immun Denies wheezing Physical exam (Primary Care) Tobacco/Smoking Status: Tobacco use Status Tobacco use date assessed 10/04/23 02/29/24 09:13 Patient Tobacco Use Status Never used Tobacco 02/29/24 09:13 e-Cigarette/Vaping Use Never Used 02/29/24 09:13 Thrive Assessment: Date of Thrive Assessment Date Thrive assessed 01/17/24 02/29/24 09:13 Telehealth Telehealth Telehealth Platform: Telephone Location of provider rendering services: practice address Location of patient: address on file Patient Identification confirmed using: Name, : Yes Telehealth method: voice only Patient verbally consented to treatment: Yes Patient verbally consented to billing insurance company: Yes Patient informed of any privacy concerns related to visit: Yes Minutes spent on Phone/Video with Pt.: 10 Coding Level of Care Code Tele Est Pt Level 2 (45058) Diagnoses History of gout Z87.39 Elevated LDL cholesterol level E78.00 Assessment & Plan Assessment & Plan (1) History of gout: Code(s): Z87.39 - Personal history of other diseases of the musculoskeletal system and connective tissue Category: Medical Plan: May?have?had?a?recent?gout?flare?at?the?elbow. This?has?resolved Encouraged?her?to?increase?hydration?and?avoid?trigger?foods.??Encouraged?exercise?but?she?should?start?this?gradually. Will?continue?to?monitor?her?uric?acid?level?which?was?mildly?elevated?at?6.6. For?now?we?will?hold?off?on?any?medications.??Recheck?her?uric?acid?level?at?her?next?visit. If?she?gets?a?flare?up?of?joint?pain?again,?she?can?use?some?ibuprofen?and?give?us?a?call. (2) Elevated LDL cholesterol level: Code(s): E78.00 - Pure hypercholesterolemia, unspecified Category: Medical Plan: LDL?cholesterol?is?mildly?elevated. Encouraged?a?diet?low?in?saturated?fats?and?cholesterol Encouraged?weight?loss Will?recheck?at?next?visit. Orders: Orders LDL Cholesterol Direct Today E78.00 - Pure hypercholesterolemia, unspecified, E78.5 - Hyperlipidemia, unspecified Comprehensive [place]. Panel Fast Today E78.00 - Pure hypercholesterolemia, unspecified, Z00.00 - Encounter for general adult medical examination without abnormal findings Uric Acid Today Z87.39 - Personal history of other diseases of the musculoskeletal system and connective tissue Hemoglobin A1c Today R73.01 - Impaired fasting glucose
== END 2024-02-29 17:05 | disposition home or self-care (01) ==
LOC: HO.HMCFM 09:14
PROVIDERS: PCP Family Medicine; Visit Provider Family Medicine
DX: E78.00 Pure hypercholesterolemia, unspecified (principal); Z87.39 Personal history of other diseases of the musculoskeletal system and connective tissue

== ENCOUNTER → 2024-02-29 09:14 | Outpatient (BNVA) | payer OTHER, SELFPAY | PROVIDERS: PCP Family Medicine; Visit Provider Family Medicine ==

== ENCOUNTER 2024-12-11 13:58 | Outpatient (REF) | payer OTHER, SELFPAY ==
[2024-12-12 04:55] LABS: Bacterial Vaginosis PCR POSITIVE (Negative); Candida Group PCR NOT DETECTED (Not Detect); Candida glab krusei PCR NOT DETECTED (Not Detect); Trichomonas vaginalis PCR NOT DETECTED (Not Detect)
[2024-12-12 05:29] LABS: CT PCR NOT DETECTED (Not Detect.); NG PCR NOT DETECTED (Not Detect.)
== END 2024-12-11 13:59 | disposition home or self-care (01) ==
LOC: HO.LNP 13:58
PROVIDERS: PCP Family Medicine; Visit Provider Advanced Practice Midwife
DX: Z01.419 Encounter for gynecological examination (general) (routine) without abnormal findings (principal); N95.1 Menopausal and female climacteric states; N92.6 Irregular menstruation, unspecified; Z98.51 Tubal ligation status; Z98.890 Other specified postprocedural states; Z12.39 Encounter for other screening for malignant neoplasm of breast; Z20.2 Contact with and (suspected) exposure to infections with a predominantly sexual mode of transmission
CPT/HCPCS: 81515; 87491; 87591

== ENCOUNTER 2024-12-11 13:58 | Outpatient (AMB) | payer OTHER, SELFPAY ==
--- NOTE | 2024-12-11 14:12 | MHC.OFFVIS ---
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 She sometimes has hot flashes and she sometimes has trouble sleeping. She still feels like she is going to get her period each month even when she does not and she actually thinks she ovulated recently even though she did not get a period since November 01 she has not been sexually active for 8 months. Sometimes she gets a discharge that has a strong smell and has some associated itching so she would like to take the medicine for bacterial vaginosis so she has it on hand it did come up positive last year though she did not have symptoms so she declined the treatment. We discussed the treatment options of the pills versus the gel and after some discussion she decided to accept the gel but she will wait to see the results. She is trying to eat well get enough sleep get enough calcium in her diet and exercise for self-care and she does take some menopausal self-care supplements that she buys [id number] that have herbs in them. 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 Cognitive needs: No Hearing needs: No Vision needs: Yes Female Reproductive History Menstrual Age of Menarche: 11 Duration of menses: 3-5 days Date of last menstrual period: 11/01/24 control method: permanent sterilization Total pregnancies: 3 Full term: 3 Date of last pap smear: 12/07/23 (negative pap smear, negative hpv ) History of abnormal pap smear: No Date of Mammogram: 12/18/23 (bi rad 1) Physical Exam Vital Signs: Last Vital Signs BP 116/60 12/11/24 14:25 BMI result Body Mass Index 29.2 Assessment & Plan Assessment & Plan (1) Screening for cervical cancer: Comment: 12/07/2023 Pap is negative with negative HPV. Code(s): Z12.4 - Encounter for screening for malignant neoplasm of cervix Category: Medical (2) History of tubal ligation: Code(s): Z98.51 - Tubal ligation status Category: Surgical (3) Breast cancer screening: Code(s): Z12.39 - Encounter for other screening for malignant neoplasm of breast Category: Medical (4) Well woman exam with routine gynecological exam: Code(s): Z01.419 - Encounter for gynecological examination (general) (routine) without abnormal findings Category: Medical (5) Perimenopause: Code(s): N95.1 - Menopausal and female climacteric states Category: Medical (6) Irregular periods: Code(s): N92.6 - Irregular menstruation, unspecified Category: Medical (7) Encounter for screening examination for sexually transmitted disease: Code(s): Z11.3 - Encounter for screening for infections with a predominantly sexual mode of transmission Category: Medical (8) H/O laparoscopy: Comment: Says it was done for ovarian cysts and varicose veins were found in her uterus, Code(s): Z98.890 - Other specified postprocedural states Category: Surgical Plan -----Discussed in this visit the following: healthy balanced diet, regular and consistent exercise, getting recommended health screens, doing the best she can for her particular health concerns, kegel exercises, pap smear screening and followup recommendations, mammography screening and SBE, normal changes in cycles in her life stage--- . She is up-to-date on her mammograms, and says she recently got a letter to schedule it We discussed aris menopausal changes in quite some detail she is doing her best to take care of herself in natural ways. Discussed things to anticipate in the future and symptoms. If she ever did decide she wanted to pursue hormonal therapy she might want to speak to another provider as I do not currently prescribe HRT. That is not something she would be interested in any way. Discussed the potential of BV which isn't very evident now and she is not having symptoms now but she wanted to have a prescription Handy so she could use it and I discussed both metronidazole and the gel and after some discussion of both she chose the metronidazole. I warned her to have some food in her stomach and possibly she had gum after each dose to deal with the after taste. Medications: New metronidazole 500 mg PO Q12H 14 tabs 0RF Coding Level of Care Code Est Pt Prev Care 40-64y(52642) Diagnoses Screening for cervical cancer Z12.4 History of tubal ligation Z98.51 Breast cancer screening Z12.39 Well woman exam with routine gynecological exam Z01.419 Perimenopause N95.1 Irregular periods N92.6 Encounter for screening examination for sexually transmitted disease Z11.3 H/O laparoscopy Z98.890
[2024-12-11 14:25] VITALS: BP 116/60; BMI 29.2
== END 2024-12-11 15:28 | disposition home or self-care (01) ==
PROVIDERS: PCP Family Medicine; Visit Provider Advanced Practice Midwife
DX: Z01.419 Encounter for gynecological examination (general) (routine) without abnormal findings (principal); N95.1 Menopausal and female climacteric states; N92.6 Irregular menstruation, unspecified; Z98.51 Tubal ligation status; Z12.39 Encounter for other screening for malignant neoplasm of breast; Z11.3 Encounter for screening for infections with a predominantly sexual mode of transmission; Z98.890 Other specified postprocedural states
CPT/HCPCS: 99396